=== PATIENT | female | born 1955 | race Hispanic/Latino ===

== ENCOUNTER 2021-10-31 21:17 | Emergency (ER) | payer OTHER ==
[2021-11-01 03:18] LABS: Basophils # (Auto) 0.1 K/mm3 (0.0-0.1); Basophils % (Auto) 0.7 % (0.0-1.8); Eosinophils % (Auto) 0.5 % (0.0-4.3); Hematocrit 41.4 % (30.3-42.9); Lymphocytes # (Auto) 3.2 K/mm3 (1.2-5.4); Lymphocytes % (Auto) 35.3 % (13.4-35.0); Mean Corpuscular HGB Conc 34 % (30-34); Mean Corpuscular Volume 94 fl (79-97); Monocytes # (Auto) 0.7 K/mm3 (0.0-0.8); Monocytes % (Auto) 8.1 % (0.0-7.3); Platelet Count 248 K/mm3 (140-440); Red Blood Count 4.41 M/mm3 (3.65-5.03); Red Cell Distribution Width 13.1 % (13.2-15.2)
[2021-11-01 03:32] LABS: Alanine Aminotransferase 21 units/L (7-56); Albumin 4.7 g/dL (3.9-5); Blood Urea Nitrogen 13 mg/dL (7-17); Calcium 10.1 mg/dL (8.4-10.2); Hemolysis Index 6
[2021-11-01 04:05] LABS: BUN/Creatinine Ratio 19; Bilirubin,Direct < 0.2 mg/dL (0-0.2)
--- NOTE | 2021-11-01 05:42 | XRay Report ---
CHEST 2 VIEWS INDICATION / CLINICAL INFORMATION: DIZZIONESS. COMPARISON: None available. FINDINGS: SUPPORT DEVICES: None. HEART / MEDIASTINUM: Heart size and mediastinal contour appear within normal limits. LUNGS / PLEURA: No significant pulmonary or pleural abnormality. No pneumothorax. BONES: No significant osseous abnormality. ADDITIONAL FINDINGS: No significant additional findings. IMPRESSION: 1. No active cardiopulmonary disease. Signer Name: Rafael Hannah II, MD Signed: 11/01/2021 5:37 AM Workstation Name: [id number]
--- NOTE | 2021-11-01 07:06 | Emergency Department Report ---
ED Dizziness HPI - General Chief Complaint: Abdominal Pain Stated Complaint: ABD PAIN Time Seen by Provider: 11/01/21 02:47 Source: patient, EMS Mode of arrival: Stretcher Limitations: No Limitations - History of Present Illness Initial Comments: 66-year-old who female resident of [facility] flew into the airport from [place] and upon landing and walking of the plane had a bout of dizziness associated with nausea which she thought may have been secondary to vertigo or dehydration. Assistance was requested that she was transported to the emergency department for further evaluation but has since then reports returning to her normal baseline and feels normal she reports no chest pain, no shortness of breath, no headache, no dizziness, no blurred vision, no presyncope or palpitations. No new medications, injuries or significant kidney issues and denies any illicit drug use or EtOH -: Gradual Timing: sudden onset History of Same: Yes History of Trauma: No Severity: mild Improves With: nothing Worsens With: nothing - Related Data Previous Rx's Medication Instructions Recorded Last Taken Type Meclizine HCl [Antivert] 25 mg PO Q4HR #10 11/01/21 Unknown Rx Allergies Allergy/AdvReac Type Severity Reaction Status Date / Time No Known Allergies Allergy Unverified 10/31/21 21:21 ED Review of Systems ROS: Stated complaint: ABD PAIN Other details as noted in HPI Comment: All other systems reviewed and negative ED Past Medical Hx - Medications Home Medications: Home Medications Medication Instructions Recorded Confirmed Last Taken Type Meclizine HCl [Antivert] 25 mg PO Q4HR #10 11/01/21 Unknown Rx ED Physical Exam - General Limitations: No Limitations General appearance: alert, in no apparent distress - Head Head exam: Present: atraumatic, normocephalic - Eye Eye exam: Present: normal appearance - ENT ENT exam: Present: mucous membranes moist - Neck Neck exam: Present: normal inspection - Respiratory Respiratory exam: Present: normal lung sounds bilaterally. Absent: respiratory distress - Cardiovascular Cardiovascular Exam: Present: regular rate, normal rhythm. Absent: systolic murmur, diastolic murmur, rubs, gallop - GI/Abdominal GI/Abdominal exam: Present: soft, normal bowel sounds - Extremities Exam Extremities exam: Present: normal inspection - Back Exam Back exam: Present: normal inspection - Neurological Exam Neurological exam: Present: alert, oriented X3, CN II-XII intact, normal gait, other (Romberg is negative finger to toes normal. gait coordinated and smooth. Normal facial symmetry. No ataxia) - Psychiatric Psychiatric exam: Present: normal affect, normal mood - Skin Skin exam: Present: warm, dry, intact, normal color. Absent: rash ED Course Vital Signs 10/31/21 21:20 Temperature 97.4 F L Pulse Rate 69 Respiratory 16 Rate Blood Pressure 142/85 [Right] O2 Sat by Pulse 99 Oximetry ED Medical Decision Making - Lab Data Result diagrams: 11/01/21 03:11 11/01/21 03:11 - EKG Data EKG shows normal: sinus rhythm Rate: normal - Radiology Data Radiology results: report reviewed Chest x-ray normal [facility] [address] [place] [address] XRay Report Signed Patient: ANGELA PATEL MR#: [id number] : 1955 Acct:[id number] Age/Sex: 66 / F ADM Date: 10/31/21 Loc: ED Attending Dr: Ordering Physician: ELIZ RAO Date of Service: 11/01/21 Procedure(s): XR chest routine 2V Accession Number(s): [id number] cc: ELIZ RAO Fluoro Time In Minutes: CHEST 2 VIEWS INDICATION / CLINICAL INFORMATION: DIZZIONESS. COMPARISON: None available. FINDINGS: SUPPORT DEVICES: None. HEART / MEDIASTINUM: Heart size and mediastinal contour appear within normal limits. LUNGS / PLEURA: No significant pulmonary or pleural abnormality. No pneumothorax. BONES: No significant osseous abnormality. ADDITIONAL FINDINGS: No significant additional findings. IMPRESSION: 1. No active cardiopulmonary disease. Signer Name: Eliel Hannah II, MD Signed: 11/01/2021 5:37 AM Workstation Name: [id number] Transcribed By: VINCE Dictated By: ELIEL HANNAH II, MD Electronically Authenticated By: ELIEL HANNAH II, MD Signed Date/Time: 11/01/21536 DD/ 6 TD/TT: - Medical Decision Making Based on the history, exam, and findings presentation not consistent with syncope, seizure, stroke, meningitis, symptomatic anemia, increased ICP, ICH. Additionally I have a low suspicion for labyrinthitis, acute otitis media or other infectious process. Prior to discharge the symptoms are controlled the patient is functioning well speaking in full sentences he is able to sit and stand and ambulate with no limitations and is able to utilize his cell phone in the form of texting and talking with video check with with no delay. Advise follow-up with primary care provider within 24 to 48 hours. Critical care attestation.: If time is entered above; I have spent that time in minutes in the direct care of this critically ill patient, excluding procedure time. ED Disposition Clinical Impression: Dizziness of unknown etiology Disposition: HOME / SELF CARE / HOMELESS Is pt being admited?: No Does the pt Need Aspirin: No Condition: Stable Instructions: Dizziness, [id number], Dizziness, Abdominal Pain (ED) Additional Instructions: You have been evaluated emergency department today for dizziness. Evaluation suggested your symptoms are most likely due to peripheral vertigo. You have been prescribed meclizine to help alleviate symptoms please take your meds prescription as directed you can also try Mark maneuver which is also related symptoms instructions are available. Please follow-up with your primary care doctor in 2 to 3 days. Your labs, EKG and chest x-ray were all normal return to the ER immediately for worsening or uncontrolled symptoms of worsening, worsening headaches, chest pain, shortness of breath, persistent vomiting, vision changes, fainting or for any any other concerning symptoms. Prescriptions: Meclizine HCl [Antivert] 25 mg PO Q4HR #10 Referrals: DR SAMAN [Other] - 3-5 Days
[2021-11-01 07:11] VITALS: BP 144/88
--- NOTE | 2021-11-03 17:14 | Electrocardiograph Report ---
[facility] Test Date: 2021-11-01 Test Time: 05:39:55 Pat Name: ANGELA PATEL Department: Room: Gender: F [employer]: LUBNA : 1955 Requested By: ANTONIO HOWARD Order Number: [id number] Reading MD: Yefri Fregoso Measurements Intervals [place] Rate: 61 P: 58 WA: 175 QRS: 38 QRSD: 85 T: 49 QT: 451 QTc: 455 Interpretive Statements Sinus rhythm No previous ECG available for comparison Electronically Signed On 11-03-2021 17:14:31 EDT by Yefri Fregoso
== END 2021-11-01 07:18 | disposition home or self-care (01) ==
LOC: ED 21:17
DX: R42 Dizziness and giddiness (principal)
CPT/HCPCS: 36415; 71046; 80048; 80076; 83690; 84484; 85025; 93005; 99284